=== PATIENT | female | born 1990 | race Caucasian/White ===

== ENCOUNTER 2024-07-31 18:41 | Emergency (ER) | payer OTHER, SELFPAY ==
[2024-07-31 19:20] VITALS: BP 138/90; PULSE 87; RESP 17; TEMP 36.4; O2SAT 100
--- NOTE | 2024-07-31 19:47 | PD.EDHA ---
ED Headache RME/HPI General Chief Complaint: Headache Stated Complaint: SEVERE HEADACHE, VOMITING, SHAKY SINCE 1600 Time Seen by Provider: 07/31/24 19:40 Arrival date/time: 07/31/24 18:41 34F history of endometriosis and likely migraines (no official diagnosis; but on Ubrelvy) presents to ED with 1 day of gradually worsening STEELE and N/V. Limitations: no limitations Related Data Home Medications ?Medication ?Instructions ?Recorded ?Confirmed atorvastatin 10 mg tablet (Lipitor) 10 mg PO QDAY 08/06/21 05/03/22 cyclobenzaprine 10 mg tablet 10 mg PO .PRN 08/06/21 05/03/22 escitalopram oxalate 10 mg tablet 10 mg PO QDAY 08/06/21 05/03/22 (Lexapro) famotidine 20 mg tablet (Pepcid) 20 mg PO QDAY PRN 08/06/21 05/03/22 gabapentin 100 mg capsule 100 mg PO QHS 08/06/21 05/03/22 Previous Rx's ?Medication ?Instructions ?Recorded rizatriptan 10 mg disintegrating See Rx Instructions PO .COMPLEX 07/31/24 tablet (Maxalt[employer]) #14 tabs Allergies Allergy/AdvReac Type Severity Reaction Status Date / Time No Known Allergies Allergy Verified 07/31/24 18:43 Review of Systems Review of Systems Systems Reviewed: All systems reviewed, normal except as documented Constitutional Constitutional: Reports system reviewed and no additional complaints, except as documented, Reports as per HPI, Denies fever(s) and Reports headache(s) ENT Ears, Nose, Mouth, and Throat: Denies disequilibrium and Reports headache(s) Cardiovascular Cardiovascular: Reports system reviewed and no additional complaints, except as documented, Denies chest pain and Denies dyspnea Respiratory Respiratory: Reports system reviewed and no additional complaints, except as documented, Denies cough and Denies dyspnea Gastrointestinal Gastrointestinal: Reports system reviewed and no additional complaints, except as documented, Reports as per HPI, Denies abdominal pain, Reports nausea and Reports vomiting Neurologic Neurologic: Reports system reviewed and no additional complaints, except as documented, Denies confusion, Denies disequilibrium and Reports headache(s) Psychiatric Psychiatric: Denies confusion Past Medical History Past Medical History CARDIAC: Negative Congestive Heart Failure RESPIRATORY: Negative Chronic Obstructive Pulmonary Disease (COPD) GENITOURINARY: Negative Renal Disease REPRODUCTIVE: Positive Endometriosis ENDOCRINE: Negative Diabetes Mellitus Type 1 or Diabetes Mellitus Type 2 Social History SMOKING STATUS: Never smoker ED Exam General Limitations: Present no limitations General appearance: Present alert and in no apparent distress Head Head exam: Present atraumatic Eye Eye exam: Present normal appearance, PERRL and EOMI ENT ENT exam: Present normal exam, normal oropharynx and mucous membranes moist Neck Neck exam: Present normal inspection, full ROM and trachea midline Chest Chest inspection: Present normal inspection and symmetric chest wall rise Respiratory Respiratory exam: Present normal lung sounds bilaterally Cardiovascular Cardiovascular exam: Present regular rate, normal rhythm and normal heart sounds Abdominal Exam Abdominal exam: Present soft and normal bowel sounds Extremities Exam Extremities exam: Present normal inspection and full ROM Back Exam Back exam: Present normal inspection and full ROM Neurological Exam Neurological exam: Present alert, oriented X3 and CN II-XII intact Psychiatric Psychiatric exam: Present normal affect and normal mood Skin Skin exam: Present warm, dry, intact and normal color Course Quality Measures none Orders Category Date Time Status Metoclopramide [Reglan] Med 07/31/24 19:40 Discontinued 10 mg PO X1 ONE SUMAtriptan INJ [Imitrex Inj] Med 07/31/24 19:40 Discontinued 6 mg SC X1 ONE Vital Signs Vital signs: Vital Signs Temperature 97.6 F 07/31/24 19:20 Pulse Rate 87 07/31/24 19:20 Respiratory Rate 17 07/31/24 19:20 Blood Pressure 138/90 H 07/31/24 19:20 Pulse Oximetry (%) 100 07/31/24 19:20 Oxygen Delivery Method Room Air 07/31/24 19:20 O2 at 100% on RA and WNLs Headache MDM Narrative MDM Narrative:: 34F history of endometriosis and likely migraines (no official diagnosis; but on Ubrelvy) presents to ED with 1 day of gradually worsening STEELE and N/V. Physical exam reveals normal pupil response and EOM. Gait normal. Patient appears to be shielding eyes from light. Patient is afebrile, calm, and alert. Migraine meds improved symptoms. Patient data External records reviewed:: [facility] previous records Clinical information provided by:: patient Social determinants that could affect healthcare access:: none Patient has the following chronic illnesses:: endometriosis and likely migraines How is presenting disease/condition affected by chronic disease/condition?: exacerbated by Evaluation data The following diagnostics were reviewed and interpreted by me:: other (specify) (none) Lab and/or radiology exams considered but not ordered:: not ordered Interpretation Summary: n/a Medications / Prescriptions Medications or Prescriptions considered but not ordered:: ordered Medication administrations:: Medication Administration History Discontinued Medications Metoclopramide HCl (Metoclopramide 5 Mg Tablet) 10 mg PO X1 ONE Stop: 07/31/24 19:41 Last Admin: 07/31/24 19:54 Dose: 10 mg Documented By: MILAGROS Sumatriptan Succinate (Sumatriptan Inj 6 Mg/0.5 Ml Vial) 6 mg SC X1 ONE Stop: 07/31/24 19:41 Last Admin: 07/31/24 19:54 Dose: 6 mg Documented By: MILAGROS above Consultations Consultation(s) initiated? (list below): No Diagnosis Differential diagnosis headache: migraine, tension headache, subarachnoid hemorrhage, headache, meningitis, sinusitis and postconcussion syndrome Most likely diagnosis given after review of the tests above:: migraine Admission Indicated Admission indicated?: not indicated Admission Request Was there a request for admission?: No Disposition Plan Disposition Plan: Discharge Discharge Attestation Discharge Attestation: The patient and all family members were given an opportunity to ask questions and understood the discharge instructions. Discharge instructions specifically effects, indications for sooner follow up or return to the emergency department, and the expected course of current diagnosis. Patient condition: Stable Discharge Plan Plan Patient Disposition: HOME (Self Care) Disposition Comment: Stable Prescriptions/Referrals Prescriptions/Med Rec: New rizatriptan [Maxalt[employer]] 10 mg tablet,disintegrating See Rx Instructions .ROUTE .COMPLEX Qty: 14 0RF Rx Instructions: take 1 tab at onset of headache; if no relief may repeat 1 tab after at least 2 hrs; max = 3 tabs/24 hr No Action escitalopram oxalate [Lexapro] 10 mg tablet 10 mg PO QDAY atorvastatin [Lipitor] 10 mg tablet 10 mg PO QDAY gabapentin 100 mg capsule 100 mg PO QHS famotidine [Pepcid] 20 mg tablet 20 mg PO QDAY PRN cyclobenzaprine 10 mg tablet 10 mg PO .PRN Referrals: No Primary/Family,Physician [Primary Care Provider] - In 1 week Problem List Clinical Impression: Migraine Patient/Caregiver Discharge Instructions Education Materials: ED Headache, Migraine, Classic Additional Instructions: Please follow-up with PCP within 24-48 hours and return immediately if symptoms worsen. Print Language: Samoan Stand Alone Forms: Patient Portal Info Letter PA/ACCOUNT RELATIONSHIP MANAGER Supervising Physician PA/ACCOUNT RELATIONSHIP MANAGER Supervising Physician: Dr. Plascencia
[2024-07-31] MEDS: SUMAtriptan INJ 6 MG/0.5 ML VIAL SC (19:54)
[2024-07-31] MEDS: METOCLOPRAMIDE 5 MG TABLET 10 MG PO (19:54)
== END 2024-07-31 21:20 | disposition home or self-care (01) ==
PROVIDERS: Emergency Provider Emergency Medicine
DX: G43.909 Migraine, unspecified, not intractable, without status migrainosus (principal)
CPT/HCPCS: 96372; 99283; J3030; A9270